=== PATIENT | male | born 1985 | race Two or more races ===

== ENCOUNTER 2018-03-31 08:43 | Day surgery (SDC) | payer OTHER ==
[~2018-03-31 08:43] MED LIST: Buffered Lidocaine 0.9% SYRIN* 5 ML/SYR SYRINGE INTRADERM ONE
[2018-03-31] MEDS ORDERED: Buffered Lidocaine 0.9% SYRIN* 5 ML/SYR SYRINGE ONE (08:54)
[2018-03-31] MEDS ORDERED: Lidocain 1% EPI 1:100,000 * 30 ML MDV ONE (11:44)
[2018-03-31] MEDS ORDERED: Propofol* 10 MG/ML 20 ML BTL IV PUSH ONE (11:50)
[2018-03-31] MEDS ORDERED: Succinylcholine* 20 MG/ML 10 ML VIAL ONE (11:50)
[2018-03-31] MEDS ORDERED: Midazolam* 1 MG/ML 5 ML VIAL (5 MG) ONE (11:50)
[2018-03-31] MEDS ORDERED: fentaNYL* 50 MCG/ML 2 ML VIAL (100 MCG VIAL) ONE ×2 (11:50→12:40)
[2018-03-31] MEDS ORDERED: Dexamethasone IV* 4 MG/ML 1 ML (4 MG) ONE (12:12)
[2018-03-31] MEDS ORDERED: Naloxone* 0.4 MG/ML 1 ML VIAL IV PRN (13:13)
[2018-03-31] MEDS ORDERED: fentaNYL* 50 MCG/ML 2 ML VIAL (100 MCG VIAL) IV PRN (13:13)
[2018-03-31] MEDS ORDERED: oxyCODONE/Acetamin 5/325 MG* TAB PO PRN (13:13)
[2018-03-31] MEDS ORDERED: Ondansetron INJ* 2 MG/ML VIAL IV PRN (13:13)
[2018-03-31] MEDS ORDERED: DiMENhydriNATE IV* 50 MG/ML VIAL IV PUSH PRN (13:13)
[2018-03-31] MEDS ORDERED: Ondansetron INJ* 2 MG/ML VIAL ONE (13:20)
[2018-03-31] MEDS ORDERED: HYDROmorphone INJ1* 1 MG/ML SYRINGE ONE (14:16)
[2018-03-31] MEDS ORDERED: oxyCODONE/Acetamin 5/325 MG* TAB ONE (14:16)
[2018-03-31] MEDS: HYDROmorphone INJ1* 1 MG/ML SYRINGE IV PRN ×5 (14:19→14:44)
[2018-03-31 15:41] VITALS: BP 136/83
--- NOTE | 2018-03-31 22:02 | OP ---
DATE OF OPERATION: 03/31/18 - SDS DATE OF : 89 SURGEON: Dilshad Casey MD AUDIO ENGINEER: Dr. Solis. PRE-OP DIAGNOSIS: Hyperfunctioning left thyroid nodule with hyperthyroidism. POST-OP DIAGNOSIS: Hyperfunctioning left thyroid nodule with hyperthyroidism. OPERATIVE PROCEDURE: Left thyroid lobectomy under general endotracheal anesthesia using the NIM neuromonitoring system. COMPLICATIONS: None. DISPOSITION: Good. SPECIMEN: Left thyroid lobe. BLOOD LOSS: 10 mL. DESCRIPTION OF PROCEDURE: The patient was taken to the operating room, placed on the supine position on the operating room table. General anesthesia was induced. He was orotracheally intubated with the NIMs tube and the ground and return electrodes were placed and proper EMG was verified. His head was extended, incision was demarcated over his anterior neck inferior to the cricoid cartilage. This was injected with 1% lidocaine with 1:100,000 epinephrine. He was prepped with Betadine and draped in a sterile fashion. Incision was made to the skin, platysmal muscle, inferior superior subplatysmal flaps were raised and the Shamar retractor was placed. The strap muscles were opened at the median raphe and elevated off the left thyroid gland and nodule. The isthmus was isolated and cut and the anterior thyroid was taken off the anterior tracheal wall. The surgery was done by systematically elevating the tissue off of the thyroid gland to come around it laterally, inferiorly, superiorly, and laterally first starting laterally coming around superiorly isolating the superior thyroid vessels, clipping them, and using the ligature to cut these vessels. Coming inferiorly, the recurrent laryngeal nerve was found at the tracheoesophageal groove and this was traced superiorly and preserving it using the NIM neurostimulator to verify continuity. The parathyroids were retracted down into the neck and the left thyroid lobe was lifted off of the trachea and removed. Hemostasis was ensured. The wound was irrigated with saline, some Surgicel was placed over the little bit of the thyroid bed that was left where the nerve entered the trachea. The strap muscles were reapproximated with a running 3-0 Vicryl and then the skin was closed with 3-0 deep dermal Vicryl, a 4-0 subcuticular Ethilon, Mastisol, and Steri-Strips. The patient tolerated this procedure well. No complications. Transferred to the recovery room in stable condition. [id number]/[facility] #: [id number] NAMRATA
== END 2018-03-31 15:50 | disposition home or self-care (01) ==
LOC: OR 08:43
PROVIDERS: ATTEND Otolaryngology
DX: E05.10 Thyrotoxicosis with toxic single thyroid nodule without thyrotoxic crisis or storm (principal); Z87.891 Personal history of nicotine dependence
CPT/HCPCS: 88307; A9270-GY; J0330; J1100; J1170; J2250; J2405; J2704; J3010